=== PATIENT | female | born 1975 | race Two or more races ===

== ENCOUNTER 2019-09-18 23:07 | Emergency (ER) | payer OTHER ==
[~2019-09-18] VITALS: Ht 160 cm; Wt 61.2 kg
[~2019-09-18 23:07] MED LIST: AMANTADINE100 MG; BACLOFEN10 MG; CELEXA10 MG; KETO10TA2 PO; NEURONTIN800 MG; RESTORIL15 MG; TENORMIN25 MG
== END 2019-09-19 | disposition home or self-care (01) ==
LOC: ER 23:07
DX: M54.89 Other dorsalgia (principal)

== ENCOUNTER 2021-04-17 22:44 | Emergency (ER) | payer OTHER ==
[~2021-04-17] VITALS: Ht 160 cm; Wt 66.2 kg
[2021-04-17] MEDS ORDERED: BACLOFEN5 MG (23:35)
[2021-04-17] MEDS ORDERED: TOPROL XL25 M1 (23:36)
== END 2021-04-18 06:34 | disposition home or self-care (01) ==
LOC: ER 22:44
DX: G35 Multiple sclerosis (principal)

== ENCOUNTER 2022-09-28 20:06 | Emergency (ER) | payer OTHER ==
[~2022-09-28] VITALS: Ht 160 cm; Wt 61.2 kg
[~2022-09-28 20:06] MED LIST changes: +BACLOFEN5 MG; +TOPROL XL25 M1
== END 2022-09-29 00:22 | disposition home or self-care (01) ==
LOC: ER 20:06
DX: N39.0 Urinary tract infection, site not specified (principal); G35 Multiple sclerosis

== ENCOUNTER 2023-09-14 17:12 | Emergency (ER) | payer OTHER ==
[~2023-09-14] VITALS: Ht 160 cm; Wt 64.4 kg
[2023-09-14] MEDS ORDERED: CHOLESTYRAMINE L4 GM PO (18:31)
[2023-09-14] MEDS ORDERED: KETOROLAC TROMETHAMINE 60 MG VIAL IM ONE (19:30)
[2023-09-14] MEDS ORDERED: TRAMADOL HCL 50 MG TABLET PO SCH (19:30)
== END 2023-09-14 21:00 | disposition home or self-care (01) ==
LOC: ER 17:12
DX: M62.830 Muscle spasm of back (principal); M54.9 Dorsalgia, unspecified; G35 Multiple sclerosis; I10 Essential (primary) hypertension
CPT/HCPCS: 96372; 99282; J1885

== ENCOUNTER 2024-02-02 14:04 | Emergency (ER) | payer OTHER ==
[~2024-02-02] VITALS: Ht 170.2 cm; Wt 65.3 kg
[~2024-02-02 14:04] MED LIST changes: +CHOLESTYRAMINE L4 GM PO; +LYRICA20 MG/1 ML; +MEDROLPACK PO; +METAXALONE800 MG PO
[2024-02-02] MEDS ORDERED: KETOROLAC TROMETHAMINE 60 MG VIAL IM STA (15:55)
[2024-02-02] MEDS ORDERED: ORPHENADRINE CITRATE 30 MG/ML AMPUL IM STA (15:56)
[2024-02-02] MEDS ORDERED: ACETAMINOPHEN WITH CODEINE 1 UDTAB TABLET PO STA (15:56)
[2024-02-02] MEDS ORDERED: ORPHENADRINE CITRATE 30 MG/ML AMPUL ONE (16:07)
[2024-02-02] MEDS ORDERED: KETOROLAC TROMETHAMINE 60 MG VIAL IM ONE (16:07)
== END 2024-02-02 17:26 | disposition home or self-care (01) ==
LOC: ER 14:04
DX: S93.491A Sprain of other ligament of right ankle, initial encounter (principal); W19.XXXA Unspecified fall, initial encounter; Y93.89 Activity, other specified; Y92.098 Other place in other non-institutional residence as the place of occurrence of the external cause; Y99.8 Other external cause status; M54.50 Low back pain, unspecified
CPT/HCPCS: 72100; 73610; 96372; 99283; J1885; J2360

== ENCOUNTER 2024-03-04 16:39 | Emergency (ER) | payer OTHER ==
[~2024-03-04] VITALS: Ht 160 cm; Wt 67.1 kg
[2024-03-04] MEDS ORDERED: TAPAZOLE5 MG PO (16:55)
[2024-03-04] MEDS ORDERED: KETOROLAC TROMETHAMINE 30 MG VIAL IM STA (17:18)
[2024-03-04] MEDS ORDERED: ORPHENADRINE CITRATE 30 MG/ML AMPUL IM STA (17:19)
[2024-03-04] MEDS ORDERED: ORPHENADRINE CITRATE 30 MG/ML AMPUL ONE (17:23)
[2024-03-04] MEDS ORDERED: KETOROLAC TROMETHAMINE 30 MG VIAL ONE (17:24)
[2024-03-04 17:55] LABS: HEMATOCRIT 37.3 % (36.0-45.00); HEMOGLOBIN 12.5 g/dL (12.0-15.00); MEAN CELL VOLUME 87.5 fL (80.00-100.00); MEAN CORPUSCULAR HEMOGLOBIN 29.2 pg (27.00-32.0); MEAN CORPUSCULAR HGB CONC 33.4 g/dl (32.0-36.0); PLATELET COUNT 362 K/uL (150-450); RED BLOOD COUNT 4.26 M/uL (4.00-6.00); RED CELL DISTRIBUTION WIDTH 16.2 % (11.5-14.5)
[2024-03-04 18:30] LABS: PH,URINE 5.5 (5.0-8.0); URINE APPEARANCE Cloudy; URINE BILIRRUBIN Negative (NEGATIVE); URINE BLOOD Large; URINE COLOR Yellow; URINE GLUCOSE Negative (NEGATIVE); URINE KETONE Trace (NEGATIVE); URINE LEUKOCYTE Trace; URINE NITRATE Negative; URINE PROTEIN 30 (NEGATIVE)
[2024-03-04 18:32] LABS: ALBUMIN 4.1 gm/dL (3.4-5.0); BILIRUBIN TOTAL 0.39 mg/dL (0.3-1.2); CREATININE SERUM 0.72 mg/dL (0.55-1.02); GFR 86.82; GLOBULINA 3.8 G/DL (2.4-3.5); POTASSIUM 3.66 mEq/L (3.5-5.1); TOTAL PROTEIN 7.9 gm/dL (6.4-8.2)
[2024-03-04 18:34] LABS: URINE BACTERIA 240.6 uL (0.0-1933); URINE EPITHELIAL CELLS 18.6 uL (0.0-38.8); URINE RBC 6353.4 uL (0.0-20.8); URINE WBC 32.4 uL (0.0-23.2)
[2024-03-04 18:52] LABS: URINE CAST 0.15 uL (0.0-1.40)
[2024-03-04] MEDS ORDERED: KETO10TA2 PO (20:37)
[2024-03-04] MEDS ORDERED: CIPRO500 MG PO (20:37)
== END 2024-03-04 20:42 | disposition home or self-care (01) ==
LOC: ER 16:41
PROVIDERS: General Practice
DX: N39.0 Urinary tract infection, site not specified (principal); N20.0 Calculus of kidney; M34.89 Other systemic sclerosis
CPT/HCPCS: 36415; 74176; 96372; 99284; J1885; J2360

== ENCOUNTER 2024-05-22 10:36 | Emergency (ER) | payer OTHER ==
[~2024-05-22] VITALS: Ht 160 cm; Wt 68.0 kg
[~2024-05-22 10:36] MED LIST changes: +CIPRO500 MG PO; +TAPAZOLE5 MG PO
[2024-05-22] MEDS ORDERED: CHOLESTYRAMINE R5 GM (11:42)
[2024-05-22] MEDS ORDERED: AMRIX15 MG PO (14:03)
[2024-05-22] MEDS ORDERED: TRAM1TAB98 PO (14:03)
== END 2024-05-22 14:07 | disposition home or self-care (01) ==
LOC: ER 10:38
DX: M62.838 Other muscle spasm (principal); G35 Multiple sclerosis; I10 Essential (primary) hypertension

== ENCOUNTER 2024-07-18 20:48 | Emergency (ER) | payer OTHER ==
[~2024-07-18] VITALS: Ht 160 cm; Wt 59.9 kg
[~2024-07-18 20:48] MED LIST changes: +AMRIX15 MG PO; +CHOLESTYRAMINE R5 GM; +TRAM1TAB98 PO
[2024-07-19] MEDS ORDERED: ORPHENADRINE CITRATE 30 MG/ML AMPUL IM STA (03:33)
[2024-07-19] MEDS ORDERED: KETOROLAC TROMETHAMINE 60 MG VIAL IM STA (03:33)
[2024-07-19] MEDS ORDERED: ORPHENADRINE CITRATE 30 MG/ML AMPUL ONE (03:39)
[2024-07-19] MEDS ORDERED: KETOROLAC TROMETHAMINE 60 MG VIAL IM ONE (03:39)
[2024-07-19] MEDS ORDERED: TRAMADOL HCL50 MG PO (03:40)
[2024-07-19] MEDS ORDERED: ZANAFLEX4 MG PO (03:40)
== END 2024-07-19 03:53 ==
LOC: ER 20:50
DX: M54.9 Dorsalgia, unspecified (principal); I10 Essential (primary) hypertension; G35 Multiple sclerosis; M62.838 Other muscle spasm
CPT/HCPCS: 96372; 99282; J1885; J2360

== ENCOUNTER 2024-11-27 11:55 | Emergency (ER) | payer OTHER ==
[~2024-11-27] VITALS: Ht 160 cm; Wt 78.0 kg
[~2024-11-27 11:55] MED LIST changes: +TRAMADOL HCL50 MG PO; +ZANAFLEX4 MG PO
[2024-11-27] MEDS ORDERED: KETOROLAC TROMETHAMINE 60 MG VIAL IM ONE ×2 (13:45→14:32)
[2024-11-27] MEDS ORDERED: ORPHENADRINE CITRATE 30 MG/ML AMPUL IM ONE (13:45)
[2024-11-27] MEDS ORDERED: ORPHENADRINE CITRATE 30 MG/ML AMPUL ONE (14:32)
== END 2024-11-27 15:35 | disposition home or self-care (01) ==
LOC: ER 11:55
DX: M62.830 Muscle spasm of back (principal); M54.50 Low back pain, unspecified; G35 Multiple sclerosis; I10 Essential (primary) hypertension

== ENCOUNTER 2025-03-08 21:44 | Emergency (ER) | payer OTHER ==
[~2025-03-08] VITALS: Ht 160 cm; Wt 79.4 kg
[2025-03-08] MEDS ORDERED: ZETIA10 MG (21:57)
[2025-03-08] MEDS ORDERED: DICLOFENAC SODI75 MG PO (22:27)
[2025-03-08] MEDS ORDERED: TRIAMCINOLONE ACETONIDE 40 MG/ML VIAL IM ONE (22:30)
[2025-03-08] MEDS ORDERED: TRAMADOL HCL 50 MG TABLET PO ONE (22:30)
[2025-03-08] MEDS ORDERED: KETOROLAC TROMETHAMINE 60 MG VIAL IM ONE ×2 (22:30→23:12)
[2025-03-08] MEDS ORDERED: TRIAMCINOLONE ACETONIDE 40 MG/ML VIAL ONE (23:12)
== END 2025-03-09 00:02 | disposition home or self-care (01) ==
LOC: ER 21:44
DX: M62.838 Other muscle spasm (principal); G35 Multiple sclerosis

== ENCOUNTER 2025-04-29 17:54 | Emergency (ER) | payer OTHER ==
[~2025-04-29] VITALS: Ht 160 cm; Wt 80.7 kg
[~2025-04-29 17:54] MED LIST changes: +DICLOFENAC SODI75 MG PO; +ZETIA10 MG
[2025-04-29] MEDS ORDERED: TOPROL XL100 M1 (18:11)
[2025-04-29] MEDS ORDERED: DEXAMETHASONE SODIUM PHOSPHATE 4 MG/ML VIAL IM ONE (18:45)
[2025-04-29] MEDS ORDERED: ORPHENADRINE CITRATE 30 MG/ML AMPUL IM ONE (18:45)
[2025-04-29] MEDS ORDERED: KETOROLAC TROMETHAMINE 30 MG VIAL IM ONE (18:45)
[2025-04-29 20:26] LABS: BASO % 0.1 % (0.1-1.2); EOS # 0.06 (0.04-0.54); EOS % 0.7 % (0.7-7.0); LYMPH # 1.18 (1.18-3.74); LYMPH % 14.4 % (19.3-53.1); MEAN PLATELET VOLUME 10.20 fl (9.4-12.4); MONO # 0.82 (0.24-0.82); MONO % 10.0 % (4.7-12.5); NEUT # 6.13 (1.56-6.13); NEUT % 74.6 % (34.0-71.1); RED CELL DISTRIBUTION WIDTH 13.3 % (11.6-14.4)
[2025-04-29 20:49] LABS: URINE APPEARANCE Clear; URINE BILIRRUBIN Negative (NEGATIVE); URINE BLOOD Small; URINE COLOR Yellow; URINE GLUCOSE Negative (NEGATIVE); URINE KETONE Negative (NEGATIVE); URINE LEUKOCYTE Negative; URINE NITRATE Negative; URINE PROTEIN Negative (NEGATIVE); URINE UROBILINOGEN 0.2 E.U./dl
[2025-04-29 20:53] LABS: URINE BACTERIA 489.5 uL (0.0-1933); URINE EPITHELIAL CELLS 47.3 uL (0.0-38.8); URINE RBC 29.9 uL (0.0-20.8); URINE WBC 6.1 uL (0.0-23.2)
[2025-04-29 21:02] LABS: URINE CAST 0.29 uL (0.0-1.40)
[2025-04-29 21:04] LABS: ALT/SGPT 39.0 U/L (12-78); AST/SGOT 26.0 U/L (15-37); BILIRUBIN TOTAL 0.25 mg/dL (0.3-1.2); BUN CREA RATIO 11.0 (7.0-25.0); CREATININE SERUM 0.81 mg/dL (0.55-1.02); GFR 75.47; GLOBULINA 4.1 G/DL (2.4-3.5); GLUCOSE FASTING 107.0 mg/dL (65-100); OSMOLALITY SERUM 279.0 MOSM/KG (275-295)
== END 2025-04-29 21:32 | disposition home or self-care (01) ==
LOC: ER 17:55
PROVIDERS: Student in an Organized Health Care Education/Training Program
DX: M54.50 Low back pain, unspecified (principal); M54.9 Dorsalgia, unspecified; I10 Essential (primary) hypertension